=== PATIENT | male | born 1975 | race Asian ===

== ENCOUNTER 2017-06-20 19:39 | Inpatient (IN) | payer MEDICAID ==
--- NOTE | 2017-06-20 19:51 | CPEKG ---
Heart Rate: 66 RR Interval: 909 P-R Interval: 128 QRSD Interval: 96 QT Interval: 412 QTC Interval: 432 P [place]: 67 QRS [place]: 80 T Wave [place]: 54 EKG Severity - ABNORMAL ECG - EKG Impression: SINUS RHYTHM EKG Impression: PROBABLE LEFT VENTRICULAR HYPERTROPHY Electronically Signed By: Young Addison 20-Jun-2017 20:09:06
[2017-06-20 20:01] LABS: % IMMATURE GRANULYOCYTES 0.2 % (0.0-1.1); ABSOLUTE IMMATURE GRANULOCYTES 0.02 10^3/uL (0.00-0.10); ADD DIFF? NO; ADD MORPH? NO; ADD SCAN? NO; ATYPICAL LYMPHOCYTE FLAG 10 (0-99); FRAGMENT RBC FLAG 0 (0-99); HEMATOCRIT 47.3 % (40.0-51.0); HEMOGLOBIN 15.8 g/dL (13.7-17.5); LEFT SHIFT FLG 0 (0-99); LIPEMIA HEMOLYSIS FLAG 80 (0-99); MEAN CELL HEMOGLOBIN 30.4 pg (27.9-34.1); MEAN CELL HEMOGLOBIN CONCENTR. 33.4 g/dL (32.4-36.7); MEAN CELL VOLUME 91.1 fL (81.5-99.8); MEAN PLATELET VOLUME 9.6 fL (8.7-11.7); PLATELET CLUMPS FLAG 0 (0-99); PLATELET COUNT 323 10^3/uL (150-400); RED BLOOD CELL COUNT 5.19 10^6/uL (4.40-6.38)
--- NOTE | 2017-06-20 20:08 | EDPHY ---
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 He states that he took about 60 ibuprofen gel caps because he did not want to wake up. He reported to paramedics that he had chest pain but denies this to me. He states that he has had a metallic taste in his mouth since overdosing as well as her visual hallucinations and feels like there is a clog in between his heart and his lungs. REVIEW OF SYSTEMS: Constitutional: denies: chills, fever, recent illness, recent injury EENTM: denies: blurred vision, double vision, nose congestion Respiratory: denies: cough, shortness of breath Cardiac: denies: chest pain, irregular heart rate, lightheadedness, palpitations Gastrointestinal/Abdominal: denies: abdominal pain, diarrhea, nausea, vomiting, blood streaked stools Genitourinary: denies: dysuria, frequency, hematuria, pain Musculoskeletal: denies: joint pain, muscle pain Skin: denies: lesions, rash, jaundice, bruising Neurological: denies: headache, numbness, paresthesia, tingling, dizziness, weakness Hematologic/Lymphatic: denies: blood clots, easy bleeding, easy bruising Immunologic/allergic: denies: HIV/AIDS, transplant EXAM: GENERAL: Well-appearing, well-nourished and in no acute distress. HEAD: Atraumatic, normocephalic. EYES: Pupils equal round and reactive to light, extraocular movements intact, sclera anicteric, conjunctiva are normal. ENT: TMs normal, nares patent, oropharynx clear without exudates. Moist mucous membranes. NECK: Normal range of motion, supple without lymphadenopathy or JVD. LUNGS: Breath sounds clear to auscultation bilaterally and equal. No wheezes rales or rhonchi. HEART: Regular rate and rhythm without murmurs, rubs or gallops. ABDOMEN: Soft, nontender, normoactive bowel sounds. No guarding, no rebound. No masses appreciated. BACK: No CVA tenderness, no spinal tenderness, step-offs or deformities EXTREMITIES: Normal range of motion, no pitting or edema. No clubbing or cyanosis. NEUROLOGICAL: Cranial nerves II through XII grossly intact. Normal speech, normal gait. 5/5 strength, normal movement in all extremities, normal sensation PSYCH: Normal mood, normal affect. SKIN: Warm, dry, normal turgor, no visible rashes or lesions. (Young Addison) Constitutional: Initial Vital Signs Temperature (C) 36.6 C 06/20/17 19:40 Heart Rate 67 06/20/17 19:40 Respiratory Rate 14 06/20/17 19:40 Blood Pressure 128/85 H 06/20/17 19:40 O2 Sat (%) 98 06/20/17 19:40 O2 Delivery Mode Room Air Allergies/Adverse Reactions: morphine Allergy (Verified 05/27/15 10:37) Home Medications: Medication Instructions Recorded NK [No Known Home Meds] 06/20/17 Medical Decision Making - Diagnostics EKG Interpretation: An EKG obtained and was read and documented in trace view. Please see trace view for full reading and report. Sinus rhythm, LVH with repolarization abnormality, (Young Addison) ED Course/Re-evaluation: 1251: Patient has been accepted at [address] [place] [address] psychiatric hospitalization. Emtala form filled out. Appropriate transfer be set up. Dr. Walton has accepted. (Lucho Ambrocio) We did denies step because the patient's peaked T-waves. His potassium is normal. I will place him on an M1 hold. 845. The patient is slightly acidotic. I will treat with IV fluids. Otherwise he is medically cleared for psychiatric evaluation. 9:45 p.m. care transferred to Dr. Barros. Awaiting psychiatric evaluation and placement (Young Addison) - Data Points Laboratory Results: Laboratory Results 06/20/17 19:50 06/20/17 19:50 Medications Given: Olanzapine (Zyprexa Zydis) 10 mg PO HS GERARDO Stop: 12/18/17 14:14 Last Admin: 06/21/17 15:32 Dose: Not Given Discontinued Medications Sodium Chloride (Ns) 1,000 mls @ 0 mls/hr IV EDNOW ONE; Wide Open PRN Reason: Protocol Stop: 06/20/17 20:46 Last Admin: 06/20/17 21:37 Dose: 1,000 mls Departure - Departure Disposition: [facility] IP Clinical Impression: Bipolar disorder Qualifiers: Active/Remission status: currently active Current bipolar episode type: depressed Current episode severity: mild Qualified Code(s): F31.31 - Bipolar disorder, current episode depressed, mild Condition: Fair
[2017-06-20 20:16] LABS: ALANINE AMINOTRANSFERASE 30 IU/L (21-72); ALBUMIN 5.1 g/dL (3.5-5.0); ALKALINE PHOSPHATASE 72 IU/L (38-126); ANION GAP 17 mEq/L (8-16); ASPARTATE AMINOTRANSFERASE 30 IU/L (17-59); BILIRUBIN,TOTAL 0.6 mg/dL (0.1-1.4); BILIRUBIN-CONJUGATED 0.4 mg/dL (0.0-0.5); BILIRUBIN-UNCONJUGATED 0.2 mg/dL (0.0-1.1); CALCIUM 10.5 mg/dL (8.5-10.4); CARBON DIOXIDE 22 mEq/l (22-31); CHLORIDE 101 mEq/L (97-110); ETHANOL SERUM < 10 mg/dL (0-10); GLOMERULAR FILTRATION RATE > 60; GLUCOSE 79 mg/dL (70-100); POTASSIUM 5.3 mEq/L (3.5-5.2); SALICYLATE < 1.0 mg/dL (2.0-20.0); SODIUM 140 mEq/L (134-144); TOTAL PROTEIN 8.1 g/dL (6.3-8.2)
[2017-06-20 20:26] LABS: TROPONIN I < 0.012 ng/mL (0.000-0.034)
[2017-06-20] MEDS ORDERED: NS 1,000 ML IV ONE (20:45)
[2017-06-21] MEDS ORDERED: MAGNESIUM HYDROXIDE 30 ML UDCUP PO PRN (02:40)
[2017-06-21] MEDS ORDERED: ACETAMINOPHEN 325 MG TAB PO PRN (02:40)
[2017-06-21] MEDS ORDERED: MAG HYDROX/AL HYDROX/SIMETH 30 ML UDCUP PO PRN (02:40)
[2017-06-21] MEDS ORDERED: LORazepam 0.5 MG TAB PO PRN ×2 (02:40→14:13)
[2017-06-21] MEDS ORDERED: OLANZapine 5 MG TAB PO PRN (02:42)
[2017-06-21] MEDS ORDERED: MELATONIN 3 MG TAB PO PRN (02:42)
[2017-06-21] MEDS: OLANZapine DISINTEGR 10 MG TAB PO SCH ×2 (15:32→20:17)
--- NOTE | 2017-06-21 15:32 | BCON ---
[f rep st] BEHAVIORAL HEALTH CONSULTATION INTERNAL MEDICINE CONSULTATION DATE OF CONSULTATION: 06/21/2017 REFERRING PHYSICIAN: Dr. Walton. REASON FOR REFERRAL: Medical clearance for inpatient behavioral health stay. HISTORY OF PRESENT ILLNESS: This patient was brought to the [facility] Emergency Department 48 hours after an intentional overdose with suicidal intent using ibuprofen. Evaluation in the emergency department revealed mild hyperkalemia and an anion gap acidosis. He was hydrated IV. He was evaluated by the mental health team and admitted for further psychiatric care. Currently, he is without any acute complaints. PAST MEDICAL HISTORY: Bipolar disorder. PAST SURGICAL HISTORY: He has no history of surgeries. MEDICATIONS: He was taking no medications other than ibuprofen. SOCIAL HISTORY: He is homeless. He is a tobacco smoker. He has a history of alcohol, marijuana and methamphetamine use as well, but he denies those at present. FAMILY HISTORY: Noncontributory. REVIEW OF SYSTEMS: He describes occasional cough with swallowing, especially if he tries to swallow water while he is lying down. He denies any other neurologic symptoms including no headaches, vision changes, numbness, tingling or weakness of the extremities. He denies chest pain or palpitations. He denies dyspnea. He denies nausea, vomiting, constipation, or diarrhea. He denies joint pain or joint swelling. He denies skin rash or skin breakdown. Otherwise, a 10-point review of systems is negative. PHYSICAL EXAM: VITAL SIGNS: Blood pressure is 138/68, heart rate is 65, respiratory rate is 14, oxygen saturation is 96% on room air. Temperature is 36.6 degrees centigrade. His weight is 65.8 kg for a body mass index 20.2. GENERAL: This is a well-nourished, well-developed, thin man, appears somewhat older than his chronologic age, cooperative and in no acute distress. HEENT: Extraocular movements are intact. Pupils are equal, round, reactive to light. Mucous membranes are moist. Dentition is in good condition. NECK: Supple. HEART: Regular rate and rhythm with no murmurs, rubs, or gallops. LUNGS: Clear to auscultation bilaterally. ABDOMEN: Soft, nontender, nondistended with normoactive bowel sounds. EXTREMITIES: There is no cyanosis, clubbing, or edema. NEUROLOGIC: He is alert and oriented x3. Cranial nerves 2-12 are grossly intact. There is no focal weakness. Sensation is intact to light touch. Gait is within normal limits. LABORATORY STUDIES: Drawn in the emergency department: CBC was completely within normal limits. Chemistry showed a slightly elevated potassium at 5.3 with the upper limit of normal being 5.2. There was an anion gap of 17. Calcium was slightly high at 10.5, as was albumin slightly high at 5.1. Otherwise, renal function and electrolytes were within normal limits. Toxicology in the serum was negative for salicylates, acetaminophen or ethyl alcohol, and toxicology screen in the urine was negative for any substances of abuse. ASSESSMENT/RECOMMENDATIONS: 1. Mental health issues. Pending further evaluation and management per Psychiatry and the mental health team. 2. Intentional overdose on ibuprofen. He is showing no persisting toxic effects. There is no further specific evaluation or management indicated. 3. Tobacco dependence syndrome. He was advised on smoking cessation. 4. Left ventricular hypertrophy on the EKG that was obtained in the emergency department. It was obtained to evaluate for any toxicity from the ibuprofen and also because he had some chest complaints, which he no longer has. Advise follow up with primary care; consider referral to Cardiology. 5. Elevated blood pressure, certainly could be due to the overdose of ibuprofen. However, with the left ventricular hypertrophy also seen, it could be that he has chronic hypertension. Again, referral to primary care is appropriate. 6. Electrolyte abnormalities most likely corrected with hydration. No indication for further testing. I see no medical contraindications to this patient's continued stay on the inpatient behavioral health unit or to any psychiatric medications or procedures. Thank you very much for including me in the care of this patient. Please do not hesitate to contact me or the hospitalist service should there be need for further medical evaluation. /[id number]/MODL MTDD
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
[2017-06-22] MEDS: ARIPiprazole 5 MG TAB PO SCH (11:56)
--- NOTE | 2017-06-22 13:08 | SOAPPROG ---
SOAP Progress Note Assessment/Plan: Assessment: Plan: 06/22/17 13:07 Improved. Will start Abilify after thorough review of risks, benefits and alternatives. Continue d/c planning. Subjective: Pt seen, discussed with staff, chart reviewed. He refused Zyprexa last night. States he doesn't want weight gain. I reviewed other options with him and he is agreeable to Abilify. Somewhat guarded, but approp. Another pt accused him of making threatening comments in hinduism context but pt denies this. he state he is agreeable to staying through the [facility]. Objective: Vital Signs Temp Pulse Resp BP Pulse Ox 36.4 C 55 L 16 120/71 97 06/22/17 06:00 06/22/17 06:00 06/22/17 06:00 06/22/17 06:00 06/22/17 06:00 MSE: Marginally groomed, approp., coop. Affect is blunted, stable, approp. Mood is "OK.' TP generally linear though wanders at times. TC reveals no overt psychosis. Denies active SI. - Time Spent With Patient Time Spent With Patient: 25" ICD10 Worksheet Patient Problems: Problems Problem Status Onset Bipolar disorder Acute Psychotic disorder Acute
[2017-06-23] MEDS: ARIPiprazole 5 MG TAB PO SCH (08:27)
--- NOTE | 2017-06-23 20:41 | SOAPPROG ---
SOAP Progress Note Assessment/Plan: Assessment: Plan: 06/22/17 13:07 Improved. Will start Abilify after thorough review of risks, benefits and alternatives. Continue d/c planning. 06/23/17 20:41 Remains ambivalent about medications. CCM. Convert to voluntary. Subjective: Pt seen, discussed with staff. Reports feeling "very safe and cared for here." States I remind him of his father and is comforted when I come on the unit. Compliant with meds and some groups. No bx issues. Objective: Vital Signs Temp Pulse Resp BP Pulse Ox 36.5 C 79 16 120/81 H 96 06/23/17 16:50 06/23/17 16:50 06/23/17 16:50 06/23/17 16:50 06/23/17 16:50 MSE: Calm, coop. Affect is blunted, odd at times, stable. Mood is "good." TP generally linear. TC reveals continued mild paranoia. Voices no SI. ICD10 Worksheet Patient Problems: Problems Problem Status Onset Bipolar disorder Acute Psychotic disorder Acute
[2017-06-24] MEDS: ARIPiprazole 5 MG TAB PO SCH (09:21)
--- NOTE | 2017-06-24 12:45 | SOAPPROG ---
SOAP Progress Note Assessment/Plan: Assessment: 1. Bipolar, Depressed (v mixed) Continue Abilify Consider increasing dose 2. NSAID overdose Recheck CMP Plan: 1. CMP 2. Consider increasing aripiprazole 06/24/17 12:45 Subjective: "I can stay at my friends or at the penitentiary." "I gotta take care of some immigration stuff." Slept 8 hours and reports he slept "boris well." Mood is "very good." Energy, appetite, and concentration are all good. Denies AH /VH. Denies SI. Took 59 Advil tablets in a suicide attempt. Admits this was his second SA over the past two years. Previous Dx of Bipolar: mixed v depressed. Treated with lithium carbonate and olanzapine in the past, but declines these medications at this time. Denies substance use to me. Concerned about possible damage from his med overdose. Objective: Vital Signs Temp Pulse Resp BP Pulse Ox 36.6 C 86 12 118/74 98 06/24/17 06:00 06/24/17 06:00 06/24/17 06:00 06/24/17 06:00 06/24/17 06:00 Medications Generic Name Dose Route Start Last Admin Trade Name Freq PRN Reason Stop Dose Admin Aripiprazole 5 mg 06/22/17 11:45 06/24/17 09:21 Abilify PO 12/19/17 11:44 5 mg DAILY GERARDO Awake, alert, cooperative, unshaven but grooming is otherwise good, and clothese are clean. Speech not pressured, not rapid Thought processes linear and goal directed Thought content normal, not grandiose, but insight is poor ICD10 Worksheet Patient Problems: Problems Problem Status Onset Bipolar disorder Acute Psychotic disorder Acute
[2017-06-25 06:26] VITALS: BP 115/63; PULSE 69; RESP 14; TEMP 98.1; O2SAT 98
[2017-06-25] MEDS: ARIPiprazole 5 MG TAB PO SCH (08:51)
[2017-06-25 09:06] LABS: ALANINE AMINOTRANSFERASE 29 IU/L (21-72); ALBUMIN 4.2 g/dL (3.5-5.0); ALKALINE PHOSPHATASE 61 IU/L (38-126); ANION GAP 10 mEq/L (8-16); ASPARTATE AMINOTRANSFERASE 22 IU/L (17-59); BILIRUBIN,TOTAL 0.3 mg/dL (0.1-1.4); CALCIUM 9.6 mg/dL (8.5-10.4); CARBON DIOXIDE 23 mEq/l (22-31); CHLORIDE 103 mEq/L (97-110); CREATININE 0.9 mg/dL (0.7-1.3); GLOMERULAR FILTRATION RATE > 60; GLUCOSE 87 mg/dL (70-100); POTASSIUM 4.7 mEq/L (3.5-5.2); SODIUM 136 mEq/L (134-144); TOTAL PROTEIN 6.9 g/dL (6.3-8.2)
--- NOTE | 2017-06-25 22:51 | BDS ---
[f rep st] BEHAVIORAL HEALTH DISCHARGE SUMMARY DIAGNOSES: 1. Bipolar mood disorder, most recent episode, mixed. 2. Cannabis abuse. 3. Alcohol dependence. 4. Stimulant abuse. PROCEDURES: None. COMPLICATIONS: None. BRIEF REVIEW OF CASE: This patient is a 41-year-old male from [place], but living in the [facility] for many years now. He has a history of bipolar mood disorder. This is not his first hospital stay with us; he has been admitted in the past in a classic manic state with psychosis. Thus, we endorse his bipolar mood disorder diagnosis. He has had significant periods of stability in between episodes where he has been able to work, but the recurring episodes have prevented him from building a very stable lifestyle. He is but from his family. 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 He relates that he became more depressed, but he also tells us that he also was more energized and could not sleep. It seemed that while his mood was down, several of his symptoms suggest an elevated state, suggesting a classic mixed state. This was very distressing to him, and he attempted to kill himself by taking [id number] ibuprofen. He admits to taking about 60 tablets of over -the-counter ibuprofen. He did this and then did not , though he had expected to . He brought himself to the emergency room about 2 days after taking the overdose of tablets. He was assessed and thought to be dangerous and admitted to inpatient psychiatry on a 72-hour mental health hold. We initially tried to put him back on lithium carbonate and olanzapine, on which he had done well when he presented to us in the past in a manic state. He ended up declining these, but was willing to take aripiprazole. He started a 5 mg dose of aripiprazole and felt that this dose was therapeutic for him. We discussed following up with outpatient treatment to make sure that this was an appropriate dose for him. Given the nature of how aripiprazole works, as a partial dopamine agonist, some patients do achieve significant therapeutic benefit from low doses. He also benefitted from the stability of the inpatient setting. He has been living a homeless lifestyle. He sometimes sleeps in shelters, sometimes on the street, and sometimes with friends. His suicidal thinking ameliorated over his hospital stay. By the end of his hospital stay, he was able to voice that he had no ongoing suicidal thinking. He had no psychosis. He thought his mood was more stable. He is talking about the future in a forward and positive- looking manner. Correctable risks for dangerousness had all improved, so we were able to assess his dangerousness risk as minimal at the time of discharge. He has been seen at the [facility] previously, and we were able to get him an intake appointment for 06/28/2017. Since he has been seen at the [facility] in the past, we hope they will be able to integrate him back into their therapeutic regimen quickly. Another issue for this patient is his substance abuse. We advised sobriety, and he committed to remaining sober as he reestablished his outpatient care, and we hope he will follow through on this. To me, he admitted using marijuana on a regular basis, usually daily. 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 He also uses nicotine regularly and had no interest in quitting at this point in time, so he is unlikely to quit. While he acknowledges some negative effects of substances, he had little insight into long-term negative consequences of alcohol and was not interested in going through any program to try and help him quit alcohol. By 06/25/2017, we thought he had reached maximal hospital benefit. He was no longer suicidal, as I have already noted, and the correctable risks for dangerousness had all improved. He was requesting discharge. He said that he could obtain his medications. He tells us that he had made arrangements with an acquaintance to stay a few nights with his friend. He has all the information on his outpatient followup appointment. We hope he will follow through on taking his medications and getting appropriate outpatient followup. His only medication at the time of discharge is aripiprazole 5 mg daily. Again , his followup is with [facility] on 06/28/2017. It was a pleasure helping this patient during this hospital stay. I would also point out, I did check a complete metabolic panel on the day of discharge, and it was entirely normal, including a normal BUN and creatinine, and a normal estimated glomerular filtration rate. Copy requested to [facility] /[id number]/MODL MTDD
== END 2017-06-25 13:35 | disposition home or self-care (01) | DRG 885 ==
LOC: EDUNIT# → BBEH 06-21 01:30
PROVIDERS: ADMIT Psychiatry & Neurology Behavioral Neurology & Neuropsychiatry; ATTEND Psychiatry & Neurology Behavioral Neurology & Neuropsychiatry
DX: F31.60 Bipolar disorder, current episode mixed, unspecified (principal); T39.312A Poisoning by propionic acid derivatives, intentional self-harm, initial encounter; F12.10 Cannabis abuse, uncomplicated; F10.20 Alcohol dependence, uncomplicated; F15.10 Other stimulant abuse, uncomplicated; Z59.0 Homelessness
CPT/HCPCS: 80305; 82947-QW; G0480

== ENCOUNTER 2017-07-02 20:40 | Emergency (ER) | payer MEDICAID ==
--- NOTE | 2017-07-02 21:17 | EDPHY ---
H & P Stated Complaint: hasnt had psych meds since last . - Personal History Current Tetanus/Diphtheria Vaccine: Unsure Current Tetanus Diphtheria and Acellular Pertussis (TDAP): Unsure - Medical/Surgical History Hx Asthma: No Hx Chronic Respiratory Disease: No Hx Diabetes: No Hx Cardiac Disease: No Hx Renal Disease: No Hx Cirrhosis: No Hx Alcoholism: No Hx HIV/AIDS: No Hx Splenectomy or Spleen Trauma: No Other PMH: PTSD,SI, BIPOLAR,. "I HAD AIDS AND CANCER BUT I CURED MYSELF" - Social History Smoking Status: Current some day smoker Time Seen by Provider: 07/02/17 21:17 Constitutional: Initial Vital Signs Temperature (C) 37.1 C 07/02/17 20:54 Heart Rate 96 07/02/17 20:54 Respiratory Rate 18 07/02/17 20:54 Blood Pressure 128/83 H 07/02/17 20:54 O2 Sat (%) 96 07/02/17 20:54 O2 Delivery Mode Room Air Allergies/Adverse Reactions: morphine Allergy (Verified 05/27/15 10:37) Home Medications: Medication Instructions Recorded ARIPiprazole [Abilify 5 mg (*)] 5 mg PO DAILY 14 Days tab 06/25/17 Medical Decision Making ED Course/Re-evaluation: CHIEF COMPLAINT: Psychiatric evaluation HISTORY OF PRESENT ILLNESS: The patient is a 41 y/o male arriving voluntarily for psychiatric evaluation for depressive thoughts. He has a history of depression, PTSD, and bipolar disorder. He says, "I was instructed by you guys to check in if I felt the way I did before - if I have thoughts of harm and depression." He states he is not suicidal, but is feeling hopeless and stressed by family issues at home. He denies attempts to harm himself recently. No ingestions. He has not taken his medication in over a week. REVIEW OF SYSTEMS: A 10 point review of systems was performed and is negative with the exception of the elements mentioned in the history of present illness. PHYSICAL EXAM: General Appearance: Alert, well hydrated, appropriate, and non-toxic appearing. Head: Atraumatic without scalp tenderness or obvious injury Eyes: Pupils equal, round, reactive to light and accommodation, EOMI, no trauma , no injection. Nose: Atraumatic, no rhinorrhea, clear. Throat: Mucus membranes moist. Neck: Supple, nontender, no lymphadenopathy. Respiratory: No retractions, no distress, no wheezes, and no accessory muscle use. Lungs are clear to auscultation bilaterally. Cardiovascular: Regular rate and rhythm, no murmurs, rubs, or gallops. Good capillary refill all extremities. Gastrointestinal: Abdomen is soft, nontender, non-distended, no masses, no rebound, no guarding, no peritoneal signs. Musculoskeletal: Normal active ROM of all extremities, atraumatic. Neurological: Alert, appropriate, and interactive. Nonfocal neuro exam. Skin: No rashes, good turgor, no nodules on palpation. Past medical history: depression, PTSD, and bipolar disorder Past surgical history: denies Family history: noncontributory Social history: From [place]. Uses marijuana. Family nearby. DIFFERENTIAL DIAGNOSIS: The differential diagnosis for the patient's depression included but was not limited to functional and major depression, situational depression, medication side effect, drugs, and alcohol abuse. MEDICAL DECISION MAKING: Patient is in no acute distress and is hemodynamically stable. We are awaiting psychiatric team's evaluation. Patient has known history of psychiatric disorders and is here for evaluation. (José Miguel Keller) [id number]: Re-examination at this time. Patient denies wanting to harm himself or anybody else. Denies suicidal ideation. He is calm and cooperative. Not manic. Not psychotic. He has been evaluated by mental health. They did not feel that he needs inpatient admission for any psychiatric acute illness. The patient also is agreeable this plan he would like to go home. He is requesting discharge. I did notice that his Tylenol level was slightly elevated when he arrived here. I did repeat his Tylenol level is than 10 now. He has no complaints he is requesting discharge. He contracts for safety. His follow-up care in place. He does understand if he feels suicidal wants to harm self or anybody else or severely depressed or hopeless she return emergency room. ( Lucho Ambrocio) - Data Points Laboratory Results: Laboratory Results 07/02/17 21:23 07/02/17 21:23 07/03/17 07/02/17 07/02/17 01:30 21:23 21:23 WBC RBC Hgb Hct MCV MCH MCHC RDW Plt Count MPV Neut % (Auto) Lymph % (Auto) [place] % (Auto) Eos % (Auto) Baso % (Auto) Nucleat RBC Rel Count Absolute Neuts (auto) Absolute Lymphs (auto) Absolute Monos (auto) Absolute Eos (auto) Absolute Basos (auto) Absolute Nucleated RBC Immature Gran % Immature Gran # Sodium 139 mEq/L mEq/L (134-144) Potassium 5.1 mEq/L mEq/L (3.5-5.2) Chloride 102 mEq/L mEq/L (97-110) Carbon Dioxide 28 mEq/l mEq/l (22-31) Anion Gap 9 mEq/L mEq/L (8-16) BUN 14 mg/dL mg/dL (7-23) Creatinine 1.0 mg/dL mg/dL (0.7-1.3) Estimated GFR > 60 Glucose 75 mg/dL mg/dL (70-100) Calcium 10.4 mg/dL mg/dL (8.5-10.4) Salicylates < 1.0 mg/dL L mg/dL (2.0-20.0) Urine Opiates Screen NEGATIVE (NEGATIVE) Acetaminophen < 10 mcg/mL L mcg/mL 27 mcg/mL mcg/mL (10-30) (10-30) Urine Barbiturates NEGATIVE (NEGATIVE) Ur Phencyclidine Scrn NEGATIVE (NEGATIVE) Ur Amphetamine Screen NEGATIVE (NEGATIVE) U Benzodiazepines Scrn NEGATIVE (NEGATIVE) Urine Cocaine Screen NEGATIVE (NEGATIVE) U Marijuana (THC) Screen NEGATIVE (NEGATIVE) Ethyl Alcohol < 10 mg/dL mg/dL (0-10) 07/02/17 21:23 WBC 13.05 10^3/uL H 10^3/uL (3.80-9.50) RBC 4.84 10^6/uL 10^6/uL (4.40-6.38) Hgb 14.6 g/dL g/dL (13.7-17.5) Hct 44.4 % % (40.0-51.0) MCV 91.7 fL fL (81.5-99.8) MCH 30.2 pg pg (27.9-34.1) MCHC 32.9 g/dL g/dL (32.4-36.7) RDW 12.7 % % (11.5-15.2) Plt Count 295 10^3/uL 10^3/uL (150-400) MPV 9.5 fL fL (8.7-11.7) Neut % (Auto) 75.4 % H % (39.3-74.2) Lymph % (Auto) 19.0 % % (15.0-45.0) [place] % (Auto) 4.1 % L % (4.5-13.0) Eos % (Auto) 0.4 % L % (0.6-7.6) Baso % (Auto) 0.6 % % (0.3-1.7) Nucleat RBC Rel Count 0.0 % % (0.0-0.2) Absolute Neuts (auto) 9.83 10^3/uL H 10^3/uL (1.70-6.50) Absolute Lymphs (auto) 2.48 10^3/uL 10^3/uL (1.00-3.00) Absolute Monos (auto) 0.54 10^3/uL 10^3/uL (0.30-0.80) Absolute Eos (auto) 0.05 10^3/uL 10^3/uL (0.03-0.40) Absolute Basos (auto) 0.08 10^3/uL 10^3/uL (0.02-0.10) Absolute Nucleated RBC 0.00 10^3/uL 10^3/uL (0-0.01) Immature Gran % 0.5 % % (0.0-1.1) Immature Gran # 0.07 10^3/uL 10^3/uL (0.00-0.10) Sodium Potassium Chloride Carbon Dioxide Anion Gap BUN Creatinine Estimated GFR Glucose Calcium Salicylates Urine Opiates Screen Acetaminophen Urine Barbiturates Ur Phencyclidine Scrn Ur Amphetamine Screen U Benzodiazepines Scrn Urine Cocaine Screen U Marijuana (THC) Screen Ethyl Alcohol Departure - Departure Disposition: Home, Routine, Self-Care Clinical Impression: Depression Qualifiers: Depression Type: unspecified Qualified Code(s): F32.9 - Major depressive disorder, single episode, unspecified Condition: Good Instructions: Depression (ED) Additional Instructions: 1. Please return to the emergency room if you have thoughts of wanting to harm herself or anybody else. Thoughts of being suicidal. Referrals: NONE *PRIMARY CARE P,. [Primary Care Provider] - As per Instructions Report Scribed for: José Miguel Keller Report Scribed by: Marlene Vasquez Date of Report: 07/02/17 Time of Report: 21:55
[2017-07-02 21:46] LABS: % IMMATURE GRANULYOCYTES 0.5 % (0.0-1.1); ABSOLUTE IMMATURE GRANULOCYTES 0.07 10^3/uL (0.00-0.10); ADD DIFF? NO; ADD MORPH? NO; ADD SCAN? NO; ATYPICAL LYMPHOCYTE FLAG 0 (0-99); FRAGMENT RBC FLAG 0 (0-99); HEMATOCRIT 44.4 % (40.0-51.0); HEMOGLOBIN 14.6 g/dL (13.7-17.5); LEFT SHIFT FLG 0 (0-99); LIPEMIA HEMOLYSIS FLAG 80 (0-99); MEAN CELL HEMOGLOBIN 30.2 pg (27.9-34.1); MEAN CELL HEMOGLOBIN CONCENTR. 32.9 g/dL (32.4-36.7); MEAN CELL VOLUME 91.7 fL (81.5-99.8); MEAN PLATELET VOLUME 9.5 fL (8.7-11.7); PLATELET CLUMPS FLAG 0 (0-99); PLATELET COUNT 295 10^3/uL (150-400); RED BLOOD CELL COUNT 4.84 10^6/uL (4.40-6.38); RED CELL DISTRIBUTION WIDTH 12.7 % (11.5-15.2)
[2017-07-02 21:53] LABS: ANION GAP 9 mEq/L (8-16); CALCIUM 10.4 mg/dL (8.5-10.4); CARBON DIOXIDE 28 mEq/l (22-31); CHLORIDE 102 mEq/L (97-110); ETHANOL SERUM < 10 mg/dL (0-10); GLOMERULAR FILTRATION RATE > 60; GLUCOSE 75 mg/dL (70-100); POTASSIUM 5.1 mEq/L (3.5-5.2); SALICYLATE < 1.0 mg/dL (2.0-20.0); SODIUM 139 mEq/L (134-144)
[2017-07-03 05:12] VITALS: BP 109/64; PULSE 66; RESP 15; TEMP 97.9; O2SAT 95
== END 2017-07-03 05:16 | disposition home or self-care (01) ==
DX: F32.9 Major depressive disorder, single episode, unspecified (principal); F17.200 Nicotine dependence, unspecified, uncomplicated
CPT/HCPCS: 80305; G0480

== ENCOUNTER 2017-07-11 02:32 | Emergency (ER) | payer MEDICAID ==
[2017-07-11 02:57] LABS: % IMMATURE GRANULYOCYTES 0.2 % (0.0-1.1); ABSOLUTE IMMATURE GRANULOCYTES 0.03 10^3/uL (0.00-0.10); ADD DIFF? NO; ADD MORPH? NO; ADD SCAN? NO; ATYPICAL LYMPHOCYTE FLAG 0 (0-99); FRAGMENT RBC FLAG 0 (0-99); HEMATOCRIT 45.5 % (40.0-51.0); HEMOGLOBIN 15.1 g/dL (13.7-17.5); LEFT SHIFT FLG 0 (0-99); LIPEMIA HEMOLYSIS FLAG 80 (0-99); MEAN CELL HEMOGLOBIN 30.7 pg (27.9-34.1); MEAN CELL HEMOGLOBIN CONCENTR. 33.2 g/dL (32.4-36.7); MEAN CELL VOLUME 92.5 fL (81.5-99.8); MEAN PLATELET VOLUME 9.2 fL (8.7-11.7); PLATELET CLUMPS FLAG 20 (0-99); PLATELET COUNT 274 10^3/uL (150-400); RED BLOOD CELL COUNT 4.92 10^6/uL (4.40-6.38); RED CELL DISTRIBUTION WIDTH 12.7 % (11.5-15.2)
[2017-07-11 03:02] VITALS: RESP 16; TEMP 98.2; O2SAT 96
[2017-07-11 03:18] LABS: ALANINE AMINOTRANSFERASE 37 IU/L (21-72); ALBUMIN 4.8 g/dL (3.5-5.0); ALKALINE PHOSPHATASE 59 IU/L (38-126); ANION GAP 10 mEq/L (8-16); ASPARTATE AMINOTRANSFERASE 29 IU/L (17-59); BILIRUBIN,TOTAL 0.4 mg/dL (0.1-1.4); CALCIUM 10.6 mg/dL (8.5-10.4); CARBON DIOXIDE 27 mEq/l (22-31); CHLORIDE 107 mEq/L (97-110); ETHANOL SERUM < 10 mg/dL (0-10); GLOMERULAR FILTRATION RATE > 60; GLUCOSE 104 mg/dL (70-100); POTASSIUM 5.8 mEq/L (3.5-5.2); SALICYLATE < 1.0 mg/dL (2.0-20.0); SODIUM 144 mEq/L (134-144); TOTAL PROTEIN 7.6 g/dL (6.3-8.2)
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
[2017-07-11 08:08] VITALS: BP 122/78; PULSE 68
== END 2017-07-11 09:27 ==
LOC: EDUNIT#
DX: F31.60 Bipolar disorder, current episode mixed, unspecified (principal); S50.01XA Contusion of right elbow, initial encounter
CPT/HCPCS: 80305; G0480